=== PATIENT | female | born 2000 | race Caucasian/White ===

== ENCOUNTER 2019-06-14 09:52 | Day surgery (SDC) | payer OTHER ==
[2019-06-11 15:26] VITALS: BMI 20.7
[2019-06-14] MEDS ORDERED: PROPOFOL 20 ML ONE ×2 (10:27→12:44)
[2019-06-14] MEDS ORDERED: MIDAZOLAM HCL 2 MG/2 ML SINGLE DOSE VIAL ONE ×3 (10:27→12:21)
[2019-06-14] MEDS ORDERED: BUPIVACAINE HCL/PF 0.5% (5MG/ML) 10 ML VIAL ONE ×2 (10:29→10:30)
[2019-06-14] MEDS ORDERED: GUM MASTIC/STORAX/MSAL/ALCOHOL 1 DRP DROPSBTL MC ONE (12:57)
[2019-06-14 13:46] VITALS: TEMP 97.6
[2019-06-14 14:06] VITALS: BP 107/65; PULSE 74
--- NOTE | 2019-06-15 18:58 | OP ---
DATE OF OPERATION: DATE OF DICTATION: 06/14/2019 PREOPERATIVE DIAGNOSIS: Right comminuted, intra-articular, displaced distal radius fracture. POSTOPERATIVE DIAGNOSIS: Right comminuted, intra-articular, displaced distal radius fracture. OPERATIVE PROCEDURE: 1. Open reduction internal fixation of right comminuted, intra-articular, displaced distal radius fracture with internal fixation of 3 or more fragments. 2. Right brachioradialis tenotomy. SURGEON: Lina Fall MD ANESTHESIA: Regional and sedation. COMPLICATIONS: None. ESTIMATED BLOOD LOSS: Minimal. SENIOR LEAD SOFTWARE ENGINEER: ANGELICA Pinedo INDICATIONS FOR PROCEDURE: The patient is a 18-year-old female with the above finding indicated for operative treatment. Risks, benefits, and alternatives were discussed with the patient at length. Proper informed consent was obtained. DESCRIPTION OF PROCEDURE: After proper identification of the patient and correct operative site, patient was brought to the operating room and placed supine on the operating room table with prominences well padded. Sedation and regional anesthesia were given. Intravenous antibiotics were given. Time-out procedure was performed. Right upper extremity was prepped and draped in the usual sterile fashion. Well-padded tourniquet was placed with a sterile prep. Esmarch bandage used to exsanguinate right upper extremity. Tourniquet was inflated to 250 mmHg. Longitudinal incision was made over the flexor carpi radialis tendon. Incision was taken sharply through the skin with blunt and sharp dissection of subcutaneous tissues. Flexor carpi radialis tendon along with the contents of the carpal canal were bluntly and gently retracted in an ulnarward direction for the remainder of the procedure. Fracture was identified as a highly comminuted, intra-articular, displaced fracture. There was actually a longitudinal fracture going down into the shaft, which was reduced with a clamp and held with a K-wire. The articular surface was then reconstituted and held tentatively. The Acumed Acu-Loc II distal radius plate was then placed on the volar aspect of the distal radius. Reduction, however, was not fully possible because of the pull of brachioradialis. Therefore, a brachioradialis subperiosteal tenotomy was performed, which allowed for full motion of the radial styloid fragment. Articular surface was then reattached to the shaft and held with the Acumed Acu-Loc plate with distal locking screws and proximal nonlocking screws. Due to the patient's alignment and the need to put plate very distal, there was a small gap between the plate and the volar aspect of the distal radius, which was not possible to remedy it; therefore, the plate was left a very small amount off the bone. Consequently, there could be need for removal of the hardware in the future but it was essential at this point to reduce the articular surface as the primary goal of the procedure. At this point, radiographs were taken in multiple planes, which confirmed proper placement and sizing of all hardware as well as reduction of the fracture and articular surface. Wrist was taken through range of motion, and full range of motion was achieved with no instability of the fragment. Distal radioulnar joint and scaphoid interval were found to be stable. Wound was irrigated and repaired in layers including the pronator quadratus with 4-0 Vicryl and 4-0 Monocryl. Steri-Strips and sterile dressings were applied. Wrist splint was placed. Patient reversed from anesthesia and brought to the recovery room in stable condition. She tolerated the procedure well. Vitor Mukherjee, the medicine assistant, was integral throughout this procedure. The procedure could not have performed without his skilled operative assistance. LNIA FALL M.D. [id number]
== END 2019-06-14 14:05 | disposition home or self-care (01) ==
LOC: FASU 09:52
PROVIDERS: ATTEND Orthopaedic Surgery Hand Surgery
PROC: 0LN50ZZ Release Right Lower Arm and Wrist Tendon, Open Approach (ICD-10-PCS; 2019-06-14)
PROC: 0PSH04Z Reposition Right Radius with Internal Fixation Device, Open Approach (ICD-10-PCS; principal; 2019-06-14 12:00)
DX: S52.531A Colles' fracture of right radius, initial encounter for closed fracture (principal); X58.XXXA Exposure to other specified factors, initial encounter; Y93.9 Activity, unspecified; Y92.9 Unspecified place or not applicable
CPT/HCPCS: 25290; 25609; C1713; 84703